=== PATIENT | female | born 1990 | race Caucasian/White ===

== ENCOUNTER 2017-05-19 16:14 | Emergency (ER) | payer MEDICAID, OTHER ==
--- NOTE | 2017-05-19 17:42 | EDPHY ---
H & P Stated Complaint: l great toe nail ripped off by door Time Seen by Provider: 05/19/17 17:08 HPI/ROS: CHIEF COMPLAINT: Right great toenail injury HISTORY OF PRESENT ILLNESS: Patient is a 27-year-old female who scraped her toe on the bottom of but door. The door rib her toenail out to the side. It is now back in place. This happened about 2 hours prior to arrival. She denies other injuries. She denies crush injury. She is able to ambulate. REVIEW OF SYSTEMS: Constitutional: denies: chills, fever, recent illness, recent injury EENTM: denies: blurred vision, double vision, nose congestion Respiratory: denies: cough, shortness of breath Cardiac: denies: chest pain, irregular heart rate, lightheadedness, palpitations Gastrointestinal/Abdominal: denies: abdominal pain, diarrhea, nausea, vomiting, blood streaked stools Genitourinary: denies: dysuria, frequency, hematuria, pain Musculoskeletal: denies: joint pain, muscle pain Skin: denies: lesions, rash, jaundice, bruising Neurological: denies: headache, numbness, paresthesia, tingling, dizziness, weakness Hematologic/Lymphatic: denies: blood clots, easy bleeding, easy bruising Immunologic/allergic: denies: HIV/AIDS, transplant EXAM: GENERAL: Well-appearing, well-nourished and in no acute distress. HEAD: Atraumatic, normocephalic. EYES: Pupils equal round and reactive to light, extraocular movements intact, sclera anicteric, conjunctiva are normal. ENT: TMs normal, nares patent, oropharynx clear without exudates. Moist mucous membranes. NECK: Normal range of motion, supple without lymphadenopathy or JVD. LUNGS: Breath sounds clear to auscultation bilaterally and equal. No wheezes rales or rhonchi. HEART: Regular rate and rhythm without murmurs, rubs or gallops. ABDOMEN: Soft, nontender, normoactive bowel sounds. No guarding, no rebound. No masses appreciated. BACK: No CVA tenderness, no spinal tenderness, step-offs or deformities EXTREMITIES: Right great toenail intact but proximal aspect out of skin. No visible laceration NEUROLOGICAL: Cranial nerves II through XII grossly intact. Normal speech, normal gait. 5/5 strength, normal movement in all extremities, normal sensation PSYCH: Normal mood, normal affect. SKIN: Warm, dry, normal turgor, no visible rashes or lesions. Source: Patient Exam Limitations: No limitations - Personal History LMP (Females 10-55): 1-7 Days Ago Current Tetanus/Diphtheria Vaccine: Yes - Medical/Surgical History Hx Asthma: No Hx Chronic Respiratory Disease: No Hx Diabetes: No Hx Cardiac Disease: No Hx Renal Disease: No Hx Cirrhosis: No Hx Alcoholism: No Hx HIV/AIDS: No Hx Splenectomy or Spleen Trauma: No Other PMH: denies - Family History Significant Family History: No pertinent family hx - Social History Smoking Status: Never smoked Alcohol Use: Sober Drug Use: None Constitutional: Initial Vital Signs Temperature (C) 36.9 C 05/19/17 16:20 Heart Rate 66 05/19/17 16:20 Respiratory Rate 16 05/19/17 16:20 Blood Pressure 118/66 05/19/17 16:20 O2 Sat (%) 95 05/19/17 16:20 O2 Delivery Mode Room Air Allergies/Adverse Reactions: No Known Allergies Allergy (Unverified 05/19/17 16:19) Home Medications: Medication Instructions Recorded Cyred 28 Day Tablet 05/19/17 Hydrocodone/APAP 5/325 [[place] 1 - 2 tab PO Q4H PRN #10 tab 05/19/17 5/325 (RX)] Medical Decision Making Procedures: The patient's right great toe was numbed with a digital block using 0.5% bupivacaine without epinephrine. After sufficient anesthesia was achieved. Her toenail was partially removed. No nail bed laceration appreciated. No hematoma. It was then replaced protecting the nail matrix. It was sutured in place with 2 sutures 5.0 PDS. Patient tolerated the procedure well. ED Course/Re-evaluation: Patient declined imaging. I have low suspicion for fracture. Her toenail is slightly avulsed and will need to be replaced. Patient tolerated the procedure well. We discussed suture care and removal. We discussed follow-up. We discussed precautions with water. She declines further workup or testing at this time and is eager to go home. Differential Diagnosis: Partial list of the Differential diagnosis considered include but were not limited to; toenail avulsion, nail bed laceration and although unlikely based on the history and physical exam, I also considered subungual hematoma, fracture , in foreign body, infected. I discussed these differential diagnoses and the plan with the patient as well as the usual and expected course. The patient understands that the diagnosis is provisional and that in medicine we are not always correct and that further workup is often warranted. Usual and customary warnings were given. All of the patient's questions were answered. The patient was instructed to return to the emergency department should the symptoms at all worsen or return, otherwise to followup with the physician as we discussed. - Data Points Medications Given: Discontinued Medications Hydrocodone Bitart/Acetaminophen ([place] 5/325mg Prepack#6) 1 btl TAKEHOME EDNOW ONE Stop: 05/19/17 20:01 Last Admin: 05/19/17 20:01 Dose: 1 btl Departure - Departure Disposition: Home, Routine, Self-Care Clinical Impression: Toenail avulsion Qualifiers: Encounter type: initial encounter Qualified Code(s): S91.209A - Unspecified open wound of unspecified toe(s) with damage to nail, initial encounter Condition: Fair Instructions: Hydrocodone/Acetaminophen (By mouth), Nail Avulsion (ED) Referrals: ANITA SANDOVAL [Other] - As per Instructions Prescriptions: Hydrocodone/APAP 5/325 [[place] 5/325 (RX)] 1 - 2 tab PO Q4H PRN #10 tab PRN Reason: Pain, Moderate
[2017-05-19] MEDS ORDERED: HYDROCOD/APAP 5/325 PREPACK#6 BTL TAKEHOME ONE ×2 (19:26→20:00)
[2017-05-19 19:57] VITALS: BP 122/64; PULSE 64; RESP 18; TEMP 97.9; O2SAT 96
== END 2017-05-19 20:01 | disposition home or self-care (01) ==
PROC: 0HQRXZZ Repair Toe Nail, External Approach (ICD-10-PCS; principal; 2017-05-19)
DX: S91.201A Unspecified open wound of right great toe with damage to nail, initial encounter (principal); X58.XXXA Exposure to other specified factors, initial encounter